=== PATIENT | male | born 1965 | race Caucasian/White ===

== ENCOUNTER 2018-03-21 07:14 | Day surgery (SDC) | payer BC, OTHER ==
[2018-03-18 15:11] VITALS: BMI 28.1
[2018-03-21 08:46] VITALS: TEMP 97.5
[2018-03-21 10:12] VITALS: BP 134/80; PULSE 60
--- NOTE | 2018-03-22 14:46 | PATH ---
Surgical Pathology Report Patient Name: ENRIQUE DIETZ [facility]. Rec. #: [id number] /Age/Gender: 1965 (Age: 52) / M Account: [id number] Location: [facility]-ENDOSCOPY Taken: 03/21/2018 Received: 03/21/2018 Reported: 03/22/2018 Physicians: Annette Diego M.D. Specimen(s) Received A: BX 2ND PORTION DUODENUM AND DUODENAL BULB B: BX ANTRUM C: BX GASTRIC POLYPS D: RECTAL POLYP Clinical History Family history of GI cancer, colon cancer screening Postoperative diagnosis: Gastric polyps, atrophic gastritis, rectal polyps Final Diagnosis A. SECOND PORTION OF DUODENUM AND DUODENUM BULB, BIOPSY: DUODENUM MUCOSA WITH NO DIAGNOSTIC ABNORMALITIES. NO HISTOLOGIC EVIDENCE OF CELIAC DISEASE. B. ANTRUM, BIOPSY: GASTRIC MUCOSA WITH ACTIVE CHRONIC GASTRITIS AND INTESTINAL METAPLASIA. IMMUNOSTAIN FOR H. PYLORI IS NEGATIVE. C. GASTRIC POLYPS, BIOPSY: FRAGMENTS OF HYPERPLASTIC POLYP. POSITIVE FOR INTESTINAL METAPLASIA. IMMUNOSTAIN FOR H. PYLORI IS NEGATIVE. D. RECTAL POLYP, POLYPECTOMY: HYPERPLASTIC POLYP. Electronically Signed Marcelina Fields M.D. Gross Description A. Received in formalin, labeled "biopsy second portion of duodenum and duodenal bulb" are 5 finley, irregular portions of soft tissue ranging from 0.2-0.5 cm. in greatest dimension. The specimens are submitted in toto in one cassette. B. Received in formalin, labeled "biopsy antrum" are 6 finley, irregular portions of soft tissue ranging from 0.3-0.5 cm. in greatest dimension. The specimens are submitted in toto in one cassette. C. Received in formalin labeled "gastric polyps," is a 2.0 x 1.6 x 0.3 cm aggregate of multiple finley, irregular to polypoid portions of soft tissue. The formalin is filtered and the specimen is entirely submitted in one cassette. D. Received in formalin, labeled "biopsy rectal polyp" are 2 finley, irregular portions of soft tissue measuring 0.2 and 0.3 cm. in greatest dimension. The specimens are submitted in toto in one cassette. DL/03/21/2018 saudi03/21/2018
== END 2018-03-21 10:05 | disposition home or self-care (01) ==
LOC: JASU-ENDO 07:14
PROVIDERS: ATTEND Internal Medicine Gastroenterology
PROC: 0DB68ZX Excision of Stomach, Via Natural or Artificial Opening Endoscopic, Diagnostic (ICD-10-PCS; 2018-03-21)
PROC: 0DBP8ZX Excision of Rectum, Via Natural or Artificial Opening Endoscopic, Diagnostic (ICD-10-PCS; principal; 2018-03-21 08:00)
DX: Z12.11 Encounter for screening for malignant neoplasm of colon (principal); K62.1 Rectal polyp; K64.8 Other hemorrhoids; K31.7 Polyp of stomach and duodenum; K29.40 Chronic atrophic gastritis without bleeding
CPT/HCPCS: 88305-TC; 88342-TC

== ENCOUNTER 2018-08-11 20:13 | Emergency (ER) | payer BC ==
[2018-08-11 20:26] VITALS: BP 143/84; PULSE 86; TEMP 97.8; BMI 30.4
[2018-08-11] MEDS ORDERED: KETOROLAC TROMETHAMINE 30 MG/1 ML VIAL IM ONE (22:03)
--- NOTE | 2018-08-11 22:03 | PDOC ---
History of Present Illness - General Chief Complaint: Back Pain Stated Complaint: LOWER BACK PAIN Time Seen by Provider: 08/11/18 21:41 History Source: Patient - History of Present Illness Initial Comments: 08/11/18 22:51 53-year-old male reports that he had a right knee injury 3 weeks ago now with right hip pain for the last 2 days. 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 Patient has no low back pain pain is worse with movement and radiates to the groin. Patient also reports that he has some swelling to the right knee which is followed by his PCP. Has past medical history of hypertension, high cholesterol. Past History - Past Medical History Allergies/Adverse Reactions: Allergies Allergy/AdvReac Type Severity Reaction Status Date / Time No Known Allergies Allergy Verified 08/11/18 20:26 Home Medications: Ambulatory Orders Amlodipine Besylate 5 mg PO DAILY 03/18/18 Ibuprofen 600 mg PO QID PRN #20 tablet 08/11/18 COPD: No HTN: Yes Hypercholesterolemia: Yes Liver Disease: (ABNORMAL LIVER FUNCTION TESTS) - Surgical History Abdominal Surgery: Yes ([facility]) - Suicide/Smoking/Psychosocial Hx Smoking History: Never smoked Have you smoked in the past 12 months: No Hx Alcohol Use: Yes ([facility] ON WEEKENDS) Drug/Substance Use Hx: No Substance Use Type: None Review of Systems - Review of Systems Able to Perform ROS?: Yes Is the patient limited [place]ra[place] proficient: No Constitutional: No: Symptoms Reported, See HPI, Chills, Diaphoresis, Fever, Loss of Appetite, Malaise, Night Sweats, Weakness, Weight Stable, Unintentional Wgt. Loss, Unexplained wgt Loss, Other Integumentary: Yes: Other (right hip pain) *Physical Exam - Vital Signs Last Vital Signs Temp Pulse Resp BP Pulse Ox 97.8 F 86 18 143/84 96 08/11/18 20:23 08/11/18 20:23 08/11/18 20:23 08/11/18 20:23 08/11/18 20:23 - Physical Exam General Appearance: Yes: Appropriately Dressed Musculoskeletal: positive: Normal Inspection, Other (right hip pain on palpation and with movement.). negative: CVA Tenderness Extremity: positive: Normal Capillary Refill, Normal Inspection, Normal Range of Motion Integumentary: positive: Normal Color, Dry, Warm Neurologic: positive: Fully Oriented, Alert, Normal Mood/Affect *DC/Admit/Observation/Transfer Diagnosis at time of Disposition: Acute right hip pain - Discharge Dispostion Disposition: HOME - Prescriptions Prescriptions: Ibuprofen 600 mg PO QID PRN #20 tablet PRN Reason: Pain - Referrals Referrals: Jayla Ervin MD [Primary Care Provider] - Call tomorrow Malcom Sanchez DO [Staff Physician] - - Patient Instructions Printed Discharge Instructions: DI for Hip Pain - Post Discharge Activity Forms/Work/School Notes: Back to Work
[2018-08-11] MEDS ORDERED: KETOROLAC TROMETHAMINE 30 MG/1 ML VIAL ONE (22:05)
== END 2018-08-11 23:04 | disposition home or self-care (01) ==
LOC: JERFT 20:13
PROC: 3E0233Z Introduction of Anti-inflammatory into Muscle, Percutaneous Approach (ICD-10-PCS; principal; 2018-08-11)
DX: M25.551 Pain in right hip (principal); R10.31 Right lower quadrant pain; I10 Essential (primary) hypertension; E78.00 Pure hypercholesterolemia, unspecified; R94.5 Abnormal results of liver function studies
CPT/HCPCS: 73523-TC-FY; 99281-25